=== PATIENT | female | born 1970 | race Caucasian/White ===

== ENCOUNTER 2016-07-23 15:39 | Observation (INO) | payer OTHER, MEDICARE ==
[~2016-07-23] VITALS: Ht 177.8 cm; Wt 117.0 kg
[~2016-07-23 15:39] MED LIST: ARIP1TAB46 PO; BUPR-86 PO; CARB200T16 PO; DICL50TA2 PO; ESTR2TAB PO; LISI-360 PO; MEDR4PAK3 PO; METH750T2 PO; TRAZ300T2 PO
[2016-07-23 15:43] VITALS: BP 191/94; PULSE 68; RESP 15; TEMP 98.2; O2SAT 98
--- NOTE | 2016-07-23 15:58 | PD ---
HPI Chief Complaint: Chest Pain Time Seen by Provider: 15:50 Travel History International Travel<30 days: No Contact w/Intl Traveler<30days: No Traveled to known affect area: No History of Present Illness HPI This is a 46-year-old female with history of hypertension, bipolar disorder who presents for evaluation of chest pain. Symptoms started 3-4 days ago. She describes it as a tightness across her chest which is constant. Sometimes the pain radiates down her arms. There are no aggravating or alleviating factors. She reports nausea associated with the discomfort. She denies any vomiting, shortness of breath, cough or congestion, diaphoresis, abdominal pain, fevers or chills, flank pain. She has never had this type of tightness before. She has no personal history of coronary artery disease. She does report family history paternally. She is uncertain if she has ever had a stress test. She has no other complaints. Her primary care physician is Dr. Gloria. [facility] Past Medical History Blood Disorders: No Bipolar Disorder: Yes Anxiety: Yes Depression: Yes Cancer: No Cardiovascular Problems: Yes Diabetes: No Diminished Hearing: No Endocrine: No Gastrointestinal Disorders: Yes (INTERMITTENT DIARRHEA) Glaucoma: No Genitourinary: No Hepatitis: No Hiatal Hernia: No Hypertension: Yes Immune Disorder: No Musculoskeletal: No Neurologic: No Psychiatric: Yes (BIPOLAR) Reproductive: No Respiratory: No Immunizations Current: Yes Thyroid Disease: No Ulcer: Yes ?: Not Menopausal: Yes Ovarian Cysts: Yes Tubal Ligation: Yes Past Surgical History Abdominal Surgery: Yes (LAP CHOLECYSTECTOMY) Cardiac Surgery: No Cholecystectomy: Yes Ear Surgery: No Endocrine Surgery: No Eye Surgery: No Genitourinary Surgery: No Gynecologic Surgery: Yes (TUBAL LIGATION ) Hysterectomy: Yes Neurologic Surgery: No Oral Surgery: No Pacemaker: No Thoracic Surgery: No Other Surgery: Yes Social History Alcohol Use: No Tobacco Use: Yes (04/30 PPD) Substance Use: Yes (HISTORY) Allergies-Medications (Allergen,Severity, Reaction): Coded Allergies: Aspirin (Verified Allergy, Severe, UPSET STOMACH, 07/23/16) Reported Meds & Prescriptions Reported Meds & Active Scripts Active Medrol Dosepak (Methylprednisolone) 4 Mg Vinny 4 Mg PO DIRECTED TAKE DIRECTED Robaxin (Methocarbamol) 750 Mg Tab 750 Mg PO TID PRN Diclofenac Potassium 50 mg (Diclofenac Potassium) 50 Mg Tab 1 Tab PO Q8 PRN Reported Bupropion Hcl Sr (Bupropion HCl) 150 Mg Tab 300 Mg PO DAILY Estradiol 2 Mg Tab 2 Mg PO DAILY Trazodone Hcl (Trazodone HCl) 300 Mg Tab 300 Mg PO HS Abilify 10 Mg Tab (Aripiprazole) 10 Mg Tab 10 Mg PO DAILY Lisinopril 10 mg (Lisinopril) 10 Mg Tab 10 Mg PO DAILY Tegretol (Carbamazepine) 200 Mg Tab 600 Mg PO BID Review of Systems Except as stated in HPI: all other systems reviewed are Neg Physical Exam Narrative GENERAL: Well-developed well-nourished female in no acute distress SKIN: Warm and dry. HEAD: Atraumatic. Normocephalic. EYES: Pupils equal and round. No scleral icterus. No injection or drainage. ENT: No nasal bleeding or discharge. Mucous membranes pink and moist. NECK: Trachea midline. No JVD. CARDIOVASCULAR: Regular rate and rhythm. No murmur appreciated. RESPIRATORY: No accessory muscle use. Clear to auscultation. Breath sounds equal bilaterally. GASTROINTESTINAL: Abdomen soft, non-tender, nondistended. Hepatic and splenic margins not palpable. MUSCULOSKELETAL: No obvious deformities. No edema. NEUROLOGICAL: Awake and alert. No obvious cranial nerve deficits. Motor grossly within normal limits. Normal speech. PSYCHIATRIC: Appropriate mood and affect; insight and judgment normal. Data Data Last Documented VS Vital Signs Date Time Temp Pulse Resp B/P Pulse Ox O2 Delivery O2 Flow Rate FiO2 07/23/16 18:43 64 16 145/82 99 Room Air 07/23/16 15:43 98.2 Orders Electrocardiogram (07/23/16 ) Basic Metabolic Panel (Bmp) (07/23/16 15:54) Ckmb (Isoenzyme) Profile (07/23/16 15:54) Complete Blood Count With Diff (07/23/16 15:54) Magnesium (Mg) (07/23/16 15:54) Prothrombin Time / Inr (Pt) (07/23/16 15:54) Act Partial Throm Time (Ptt) (07/23/16 15:54) Troponin I (07/23/16 15:54) Chest, Single Ap (07/23/16 15:54) Aspirin Chew (Aspirin Chew) (07/23/16 16:00) Ondansetron Odt (Zofran Odt) (07/23/16 16:00) Labs Laboratory Tests Test 07/23/16 16:15 White Blood Count 7.0 TH/MM3 Red Blood Count 4.42 MIL/MM3 Hemoglobin 12.7 GM/DL Hematocrit 38.9 % Mean Corpuscular Volume 88.2 FL Mean Corpuscular Hemoglobin 28.7 PG Mean Corpuscular Hemoglobin 32.6 % Concent Red Cell Distribution Width 12.8 % Platelet Count 269 TH/MM3 Mean Platelet Volume 7.3 FL Neutrophils (%) (Auto) 64.4 % Lymphocytes (%) (Auto) 28.6 % Monocytes (%) (Auto) 4.8 % Eosinophils (%) (Auto) 1.4 % Basophils (%) (Auto) 0.8 % Neutrophils # (Auto) 4.5 TH/MM3 Lymphocytes # (Auto) 2.0 TH/MM3 Monocytes # (Auto) 0.3 TH/MM3 Eosinophils # (Auto) 0.1 TH/MM3 Basophils # (Auto) 0.1 TH/MM3 CBC Comment DIFF FINAL Differential Comment Prothrombin Time 10.4 SEC Prothromb Time International 0.9 RATIO Ratio Activated Partial 25.7 SEC Thromboplast Time Sodium Level 140 MEQ/L Potassium Level 3.6 MEQ/L Chloride Level 104 MEQ/L Carbon Dioxide Level 29.1 MEQ/L Anion Gap 7 MEQ/L Blood Urea Nitrogen 7 MG/DL Creatinine 0.83 MG/DL Estimat Glomerular Filtration 74 ML/MIN Rate Random Glucose 107 MG/DL Calcium Level 8.6 MG/DL Magnesium Level 1.8 MG/DL Total Creatine Kinase 62 U/L Troponin I LESS THAN 0.02 NG/ML MDM Medical Decision Making Medical Screen Exam Complete: Yes Emergency Medical Condition: Yes Medical Record Reviewed: Yes Differential Diagnosis Costochondritis, pericarditis, myocarditis, acute coronary syndrome, pulmonary embolism, pneumothorax, bronchitis, aortic dissection Narrative Course 46-year-old female presents with 3-4 days of generalized chest tightness that occasionally radiates down the arms, nausea. She has never had these symptoms before. Aspirin is listed on her allergy list but she reports that her only side effect is nausea with no true allergic reaction symptoms. She will therefore be given aspirin, Zofran. EKG, chest x-ray, lab work is been ordered. The patient was seen in triage and she will be moved to a medical bed as soon as one becomes available. Mark Montoya Jul 23, 2016 15:58
[2016-07-23] MEDS ORDERED: ASPIRIN 81 MG CHEW TAB PO ONE (16:00)
[2016-07-23] MEDS ORDERED: ONDANSETRON ODT 4 MG TAB PO ONE (16:00)
--- NOTE | 2016-07-23 16:26 | RADRPT ---
EXAM DATE/TIME: 07/23/2016 16:01 [place] COMPARISON: No previous studies available for comparison. INDICATIONS : Chest pain MEDICAL HISTORY : None. SURGICAL HISTORY : None. ENCOUNTER: Initial ACUITY: 1 week PAIN SCORE: 2/10 LOCATION: Bilateral chest FINDINGS: A single view of the chest demonstrates the lungs to be symmetrically aerated without evidence of mas s, infiltrate or effusion. The cardiomediastinal contours are unremarkable. Osseous structures are intact. CONCLUSION: Normal examination. Rupert Oliva Jr., MD on July 23, 2016 at 16:24 Board Certified Radiologist. This report was verified electronically.
[2016-07-23 16:32] LABS: AUTOMATED NEUTROPHIL # 4.5 TH/MM3 (1.8-7.7); BASOPHIL # 0.1 TH/MM3 (0-0.2); BASOPHIL % 0.8 % (0.0-2.0); EOSINOPHIL # 0.1 TH/MM3 (0-0.4); EOSINOPHIL % 1.4 % (0.0-4.0); HEMATOCRIT 38.9 % (35.0-46.0); HEMO FLAGS DIFF FINAL; LYMPH % 28.6 % (9.0-44.0); MEAN CELL VOLUME 88.2 FL (80.0-100.0); MEAN CORPUSCULAR HEMOGLOBIN 28.7 PG (27.0-34.0); MEAN CORPUSCULAR HGB CONC 32.6 % (32.0-36.0); MONO % 4.8 % (0.0-8.0); NEUT % 64.4 % (16.0-70.0); PLATELET COUNT 269 TH/MM3 (150-450); RED BLOOD COUNT 4.42 MIL/MM3 (4.00-5.30); RED CELL DISTRIBUTION WIDTH 12.8 % (11.6-17.2)
[2016-07-23 16:40] LABS: APTT (PATIENT) 25.7 SEC (24.3-30.1); INTERNATIONAL NORMALIZED RATIO 0.9 RATIO; PROTHROMBIN TIME - PATIENT 10.4 SEC (9.8-11.6)
[2016-07-23 16:46] LABS: ANION GAP 7 MEQ/L (5-15); BICARBONATE 29.1 MEQ/L (21.0-32.0); BLOOD UREA NITROGEN 7 MG/DL (7-18); CHLORIDE 104 MEQ/L (98-107); GLOMERULAR FILTRATION RATE 74 ML/MIN (>89); MAGNESIUM 1.8 MG/DL (1.5-2.5); POTASSIUM 3.6 MEQ/L (3.5-5.1); SODIUM (NA) 140 MEQ/L (136-145)
[2016-07-23 16:53] LABS: CREATINE KINASE 62 U/L (26-192)
[2016-07-23 18:43] VITALS: BP 145/82; PULSE 64; RESP 16; O2SAT 99
--- NOTE | 2016-07-23 18:57 | PD ---
Physical Exam Narrative I, Dr. Vallejo, have reviewed the advance practice practitioner's documentation and am in agreement, met with the patient face to face, made the diagnosis, and the medical decision making was done by me. *My assessment and Findings: Atypical chest pain vs. costochondritis vs. musculoskeletal pain vs. ACS 46yo F with HTN here with left sided chest pain for about 3 days. Nonradiating , constant with some nausea. Denies any sob, vomiting, focal weakness, abdominal pain. Pt states she has never had pain like this before and never had cardiac work up. Father had heart attack but still living and does not know what age he had it. Labs reviewed, no leukocytosis. Troponin negative. CXR negative. Pt given aspirin and zofran and reevaluated at bedside. Pt is feeling better. However, pt has not had any cardiac work up before so will admit for observation in chest pain center for serial EKG and cardiac enzyme. Data Data Last Documented VS Vital Signs Date Time Temp Pulse Resp B/P Pulse Ox O2 Delivery O2 Flow Rate FiO2 07/23/16 19:05 70 18 160/72 100 Room Air 07/23/16 15:43 98.2 Orders Electrocardiogram (07/23/16 ) Basic Metabolic Panel (Bmp) (07/23/16 15:54) Ckmb (Isoenzyme) Profile (07/23/16 15:54) Complete Blood Count With Diff (07/23/16 15:54) Magnesium (Mg) (07/23/16 15:54) Prothrombin Time / Inr (Pt) (07/23/16 15:54) Act Partial Throm Time (Ptt) (07/23/16 15:54) Troponin I (07/23/16 15:54) Chest, Single Ap (07/23/16 15:54) Aspirin Chew (Aspirin Chew) (07/23/16 16:00) Ondansetron Odt (Zofran Odt) (07/23/16 16:00) Admit Order (Ed Use Only) (07/23/16 19:56) Activity Bed Rest With Brp (07/23/16 19:56) Vital Signs (Adult) Q4H (07/23/16 19:56) Cardiac Rhythm .As Directed (07/23/16 19:56) ^ Notify Dr: Other .PRN (07/23/16 19:56) ^ Notify Parameters (07/23/16 19:56) Resp Oxygen Nasal Cannula (07/23/16 ) Ckmb (Isoenzyme) Profile (07/23/16 19:56) Ckmb (Isoenzyme) Profile (07/23/16 22:56) Troponin I (07/23/16 19:56) Troponin I (07/23/16 22:56) Electrocardiogram (07/23/16 19:56) Electrocardiogram (07/23/16 22:56) ^ Obtain (07/23/16 19:56) Cost Recovery Technician / Telemetry BHARATH.Q8H (07/23/16 19:56) Labs Laboratory Tests Test 07/23/16 16:15 White Blood Count 7.0 TH/MM3 Red Blood Count 4.42 MIL/MM3 Hemoglobin 12.7 GM/DL Hematocrit 38.9 % Mean Corpuscular Volume 88.2 FL Mean Corpuscular Hemoglobin 28.7 PG Mean Corpuscular Hemoglobin 32.6 % Concent Red Cell Distribution Width 12.8 % Platelet Count 269 TH/MM3 Mean Platelet Volume 7.3 FL Neutrophils (%) (Auto) 64.4 % Lymphocytes (%) (Auto) 28.6 % Monocytes (%) (Auto) 4.8 % Eosinophils (%) (Auto) 1.4 % Basophils (%) (Auto) 0.8 % Neutrophils # (Auto) 4.5 TH/MM3 Lymphocytes # (Auto) 2.0 TH/MM3 Monocytes # (Auto) 0.3 TH/MM3 Eosinophils # (Auto) 0.1 TH/MM3 Basophils # (Auto) 0.1 TH/MM3 CBC Comment DIFF FINAL Differential Comment Prothrombin Time 10.4 SEC Prothromb Time International 0.9 RATIO Ratio Activated Partial 25.7 SEC Thromboplast Time Sodium Level 140 MEQ/L Potassium Level 3.6 MEQ/L Chloride Level 104 MEQ/L Carbon Dioxide Level 29.1 MEQ/L Anion Gap 7 MEQ/L Blood Urea Nitrogen 7 MG/DL Creatinine 0.83 MG/DL Estimat Glomerular Filtration 74 ML/MIN Rate Random Glucose 107 MG/DL Calcium Level 8.6 MG/DL Magnesium Level 1.8 MG/DL Total Creatine Kinase 62 U/L Troponin I LESS THAN 0.02 NG/ML MDM Supervised Visit with JUAREZ: Yes Interpretation(s) EKG: NSR 69bpm. Normal axis. No ST segment elevation or depression. TWI aVL unchanged from prior. Diagnosis Primary Impression: Chest pain Qualified Code: R07.9 - Chest pain, unspecified type Admitting Information Admitting Physician Requests: Anaya Patel DO Jul 23, 2016 18:56
[2016-07-23 19:05] VITALS: BP_SYST 160; BP_SYST 180; BP_DIAS 72; BP_DIAS 90; PULSE 70; RESP 18; O2SAT 100
[2016-07-23] MEDS ORDERED: LISI10TA3 PO (20:23)
[2016-07-23] MEDS ORDERED: HYDR50TA94 PO (20:23)
[2016-07-23] MEDS ORDERED: WELLTAB39 PO (20:23)
[2016-07-23] MEDS ORDERED: ESTR2TAB PO (20:23)
[2016-07-23] MEDS ORDERED: TRAZ100T4 PO (20:23)
[2016-07-23] MEDS ORDERED: ARIP1TAB15 PO (20:23)
[2016-07-23] MEDS ORDERED: TOPA50TA7 PO (20:23)
[2016-07-23] MEDS ORDERED: GABA300C5 PO (20:23)
[2016-07-23 21:06] VITALS: BP 158/84; PULSE 68; RESP 20; O2SAT 99
[2016-07-23 21:13] VITALS: BP 158/80; PULSE 70
[2016-07-23 22:04] LABS: CREATINE KINASE 84 U/L (26-192)
[2016-07-23 23:45] VITALS: BP 140/72; PULSE 82; RESP 18; O2SAT 100
[2016-07-24 00:42] VITALS: O2SAT 99
[2016-07-24 01:04] VITALS: PULSE 69
[2016-07-24 01:31] VITALS: BP 120/77; PULSE 75; RESP 18; TEMP 97.7; O2SAT 96
[2016-07-24 01:31] LABS: CREATINE KINASE 74 U/L (26-192)
[2016-07-24 04:00] VITALS: BP 102/57; PULSE 72; RESP 18; TEMP 98.3; O2SAT 95
[2016-07-24 07:21] VITALS: BP 125/65; PULSE 74; RESP 20; TEMP 98.3; O2SAT 94
--- NOTE | 2016-07-24 10:09 | HHI.HP ---
[facility] Primary Care Physician Yamil Gloria M.D. Chief Complaint Chest pain History of Present Illness This is a 46-year-old female that presents to the ED with a complaint of a constant chest discomfort for the last 3-4 days. The discomfort is in the center of her chest. It is a dull pain. She found nothing to worsen or improve it at home. She states it resolved in the ED last evening and has not reoccurred. She felt a little nauseous at times. No shortness breath or diaphoresis. The discomfort did not radiate. She cannot recall having symptoms like this in the past. She cannot recall she's ever had a stress test. Review of Systems General: Patient denies fevers, chills recent, and recent travel HEENT: Patient denies headache, sore throat, difficulty swallowing. Cardiovascular: Has the chest discomfort as mentioned above. Denies sensation of heart beating rapidly or irregularly. No syncope. Denies diaphoresis. Respiratory: Denies shortness of breath or inspirational chest discomfort. Denies coughing wheezing or hemoptysis. GI: Occasional nausea. Patient denies vomiting, diarrhea, abdominal pain, bloody stools. Musculoskeletal: Patient denies joint pain or edema. Denies calf pain or edema. Neurovascular: Patient denies numbness, tingling, weakness in extremities. Denies headache. Endocrine: Denies polyuria and polydipsia. Hematologic: Denies easy bruising. Skin: Denies rash or itching. Past Family Social History Allergies: Coded Allergies: Aspirin (Verified Allergy, Severe, UPSET STOMACH, 07/23/16) Past Medical History Hypertension, bipolar disorder, tobacco abuse. Denies hyperlipidemia, diabetes , and known CAD. Past Surgical History Cholecystectomy, tubal ligation, hysterectomy. Reported Medications Reported Meds & Active Scripts Active Reported Trazodone (Trazodone HCl) 100 Mg Tab 200 Mg PO HS Topamax (Topiramate) 50 Mg Tab 100 Mg PO BID Lisinopril 10 Mg Tab 10 Mg PO DAILY Hydroxyzine HCl 50 Mg Tab 50 Mg PO HS Gabapentin 300 Mg Cap 600 Mg PO BID Estradiol 2 Mg Tab 2 Mg PO DAILY Wellbutrin Xl 24 HR (Bupropion HCl) 300 Mg Tab 300 Mg PO DAILY Aripiprazole 30 Mg Tab 30 Mg PO HS Family History She states that she believes her father has coronary artery disease. Social History Patient was smoking a pack of cigarettes daily for 20 years but started vaping 2 years ago. Physical Exam Vital Signs Vital Signs Date Time Temp Pulse Resp B/P Pulse Ox O2 Delivery O2 Flow Rate FiO2 07/24/16 07:21 98.3 74 20 125/65 94 07/24/16 04:00 98.3 72 18 102/57 95 07/24/16 01:31 97.7 75 18 120/77 96 07/24/16 01:04 69 07/24/16 00:42 99 07/23/16 21:13 70 158/80 07/23/16 21:06 68 20 158/84 99 Room Air 07/23/16 19:05 70 18 160/72 100 Room Air 07/23/16 18:43 64 16 145/82 99 Room Air 07/23/16 18:40 66 16 99 Room Air 07/23/16 15:43 98.2 68 15 191/94 98 Physical Exam GENERAL: This is a well-nourished, well-developed patient, in no apparent distress. Patient speaks in clear complete sentences. Patient is pleasant. HEENT: Head is atraumatic and normocephalic. Neck is supple without lymphadenopathy and trachea is midline. No JVD or carotid bruits. CARDIOVASCULAR: Regular rate and rhythm without murmurs, gallops, or rubs. RESPIRATORY: Clear to auscultation. Breath sounds equal bilaterally. No wheezes , rales, or rhonchi. Chest wall is nontender. No use of accessory muscles. GASTROINTESTINAL: Abdomen is nontender, nondistended. Abdomen soft. No obvious pulsatile mass or bruit. No CVA tenderness. Strong femoral pulses bilaterally. Normal bowel sounds in all quadrants. MUSCULOSKELETAL: Patient is moving upper and lower extremities freely. No calf tenderness or edema, no Homans sign. Strong pulses in upper and lower extremities. NEUROLOGICAL: Patient is alert and oriented. Cranial nerves 2-12 are grossly intact. No focal deficits and speech is clear. SKIN: No rash and turgor is normal. Laboratory Laboratory Tests Test 07/23/16 07/23/16 07/24/16 16:15 21:00 00:48 White Blood Count 7.0 Red Blood Count 4.42 Hemoglobin 12.7 Hematocrit 38.9 Mean Corpuscular Volume 88.2 Mean Corpuscular Hemoglobin 28.7 Mean Corpuscular Hemoglobin 32.6 Concent Red Cell Distribution Width 12.8 Platelet Count 269 Mean Platelet Volume 7.3 Neutrophils (%) (Auto) 64.4 Lymphocytes (%) (Auto) 28.6 Monocytes (%) (Auto) 4.8 Eosinophils (%) (Auto) 1.4 Basophils (%) (Auto) 0.8 Neutrophils # (Auto) 4.5 Lymphocytes # (Auto) 2.0 Monocytes # (Auto) 0.3 Eosinophils # (Auto) 0.1 Basophils # (Auto) 0.1 CBC Comment DIFF FINAL Differential Comment Prothrombin Time 10.4 Prothromb Time International 0.9 Ratio Activated Partial 25.7 Thromboplast Time Sodium Level 140 Potassium Level 3.6 Chloride Level 104 Carbon Dioxide Level 29.1 Anion Gap 7 Blood Urea Nitrogen 7 Creatinine 0.83 Estimat Glomerular Filtration 74 Rate Random Glucose 107 Calcium Level 8.6 Magnesium Level 1.8 Total Creatine Kinase 62 84 74 Troponin I LESS THAN 0.02 LESS THAN 0.02 LESS THAN 0.02 Result Diagram: 07/23/16 1615 07/23/16 1615 Imaging Last 24 hours Impressions Chest X-Ray 07/23/16 1554 Signed Impressions: Service Date/Time: Saturday, July 23, 2016 16:01 - CONCLUSION: Normal examination. Rupert Oliva Jr., MD Course EKGs have sinus rhythm without significant ST segment depressions or elevations. Assessment and Plan Assessment and Plan * Chest pain: Patient has had serial cardiac enzymes and EKGs for ruling out purposes. She has been seen by Dr. Faith cardiology in the chest pain center and will undergo a Afshin protocol ETT. She will likely be discharged home if her stress test were to be nonischemic with instructions to follow-up with her primary care physician. * Hypertension: Continue her medication. * Tobacco abuse: Patient has been counseled on importance of cessation. * Bipolar disorder: Continue current medication. Roman Stephenson Jul 24, 2016 10:09
--- NOTE | 2016-07-24 10:51 | HHI.DCPOC ---
Discharge Care Plan Diagnosis: (1) Chest pain (2) Hypertension (3) Tobacco abuse Goals to Promote Your Health * To prevent worsening of your condition and complications * To maintain your health at the optimal level Directions to Meet Your Goals Take your medications as prescribed Follow your dietary instruction Follow activity as directed Keep your appointments as scheduled Take your immunizations and boosters as scheduled If your symptoms worsen call your PCP, if no PCP go to Urgent Care Center or Emergency Room Smoking is Dangerous to Your Health. Avoid second hand smoke Call the 24-hour hour crisis hotline for domestic abuse at Roman Stephenson Jul 24, 2016 10:51
[2016-07-24] MEDS ORDERED: LISINOPRIL 10 MG TAB PO ONE (11:00)
[2016-07-24 11:36] VITALS: PULSE 91
--- NOTE | 2016-07-24 14:29 | EKG ---
Date Performed: 07/24/2016 Time Performed: 00:54:26 PTAGE: 46 years EKG: Sinus rhythm MINIMAL ST DEPRESSION BORDERLINE ECG Since PREVIOUS TRACING , no significant change noted PREVIOUS TRACIN07/23/2016 21.48 DOCTOR: Ronel Faith Interpretating Date/Time 07/24/2016 14:27:10
--- NOTE | 2016-07-24 14:31 | EKG ---
Date Performed: 07/23/2016 Time Performed: 21:48:28 PTAGE: 46 years EKG: Sinus rhythm MODERATE ST DEPRESSION ABNORMAL ECG Since PREVIOUS TRACING , no significant change noted PREVIOUS TRACIN07/23/2016 15.58 DOCTOR: Ronel Faith Interpretating Date/Time 07/24/2016 14:28:59
--- NOTE | 2016-07-24 14:31 | EKG ---
Date Performed: 07/23/2016 Time Performed: 15:58:10 PTAGE: 46 years EKG: Sinus rhythm MINIMAL ST DEPRESSION BORDERLINE ECG Since PREVIOUS TRACING , no significant change noted PREVIOUS TRACIN12/07/2012 23.39 DOCTOR: Ronel Faith Interpretating Date/Time 07/24/2016 14:29:45
--- NOTE | 2016-07-24 14:40 | TR ---
Date Performed: 07/24/2016 Time Performed: 10:26:15 DOCTOR: Ronel Faith DRUG LIST: CLINICAL HISTORY: REASON FOR TEST: REASON FOR ENDING: OBSERVATION: CONCLUSION: CORONA PROTOCOL. CO CP. MILD SOB. TEST STOPPED AFTER REACHING GOAL HR SECONDARY TO CH RONIC RT KNEE PAIN.Maximum TM=247 Max HR Achieved=86.0% Maximum BM=531/86 Total Exercise Time=3:51 COMMENTS:
== END 2016-07-24 12:20 | disposition home or self-care (01) ==
LOC: NEPA 15:39 → NEDA 19:58 → NEPHCDU 22:05
PROVIDERS: ADMIT Internal Medicine Cardiovascular Disease; ATTEND Internal Medicine Cardiovascular Disease
DX: R07.9 Chest pain, unspecified (principal); I10 Essential (primary) hypertension; F31.9 Bipolar disorder, unspecified; F41.9 Anxiety disorder, unspecified; F17.210 Nicotine dependence, cigarettes, uncomplicated; Z88.6 Allergy status to analgesic agent
CPT/HCPCS: 71010; 80048; 82550; 83735; 84484; 85025; 85610; 85730; 93005; 93017; 99285; G0378